=== PATIENT | female | born 1995 | race Caucasian/White ===

== ENCOUNTER 2019-05-21 12:56 | Emergency (ER) | payer OTHER, SELFPAY ==
--- NOTE | 2019-05-21 14:00 | RAD ---
Exam:Right ankle 3 views HISTORY: Pain. Injury. COMPARISON: None FINDINGS: Ankle mortise is intact. Joint spaces are preserved. No fracture. No significant soft tissu e swelling. IMPRESSION: No fracture.
== END 2019-05-21 14:20 | disposition home or self-care (01) ==
LOC: ERS 12:56
DX: S16.1XXA Strain of muscle, fascia and tendon at neck level, initial encounter (principal); M25.571 Pain in right ankle and joints of right foot; K58.9 Irritable bowel syndrome, unspecified; V43.52XA Car driver injured in collision with other type car in traffic accident, initial encounter